=== PATIENT | male | born 2000 | race Caucasian/White ===

== ENCOUNTER 2022-01-06 19:55 | Emergency (ER) | payer BC ==
[2022-01-06] MEDS ORDERED: Ibuprofen 800 MG Tab ONE (20:15)
[2022-01-06] MEDS ORDERED: Ciprofloxacin 500 MG Tab ONE (20:15)
[2022-01-06 20:23] VITALS: BP 139/85; PULSE 95
== END 2022-01-06 20:35 | disposition home or self-care (01) ==
LOC: LB.ED 19:55
DX: N45.1 Epididymitis (principal)
CPT/HCPCS: 99283; A9270-GY